=== PATIENT | male | born 1940 | race Asian ===

== ENCOUNTER 2017-01-04 06:13 | Day surgery (SDC) | payer MEDICARE, OTHER ==
[~2017-01-04] VITALS: Ht 157.5 cm; Wt 64.1 kg
[2017-01-04] MEDS ORDERED: MECL-77 PO (08:17)
[2017-01-04] MEDS ORDERED: SIMV5TAB50 PO (08:17)
[2017-01-04] MEDS ORDERED: OMEP5POW MC (08:17)
[2017-01-04] MEDS ORDERED: LOSA50TA6 PO (08:17)
[2017-01-04] MEDS ORDERED: ASPI81TA3 PO (08:17)
[2017-01-04] MEDS ORDERED: METO-448 PO (08:17)
[2017-01-04] MEDS ORDERED: NORT10CA2 PO (08:17)
[2017-01-04 08:20] VITALS: Ht 157.5 cm; Wt 64.1 kg
[2017-01-04] MEDS ORDERED: PROPOFOL 40 ML ONE (08:50)
[2017-01-04] MEDS ORDERED: LIDOCAINE 2% (SDV) 5 ML INJ ONE (08:50)
[2017-01-04 08:52] VITALS: BP 140/65; PULSE 64; RESP 12
[2017-01-04] MEDS ORDERED: EPHEDrine SULFATE 50 MG/5 ML SYG ONE (09:16)
[2017-01-04 09:59] VITALS: BP 124/61; PULSE 96; RESP 16
--- NOTE | 2017-01-04 11:38 | GILP ---
DATE OF PROCEDURE: NAME OF PROCEDURES: Colonoscopy and polypectomy. SURGEON: Sandie Uribe MD PREOPERATIVE DIAGNOSES: 1. Change in bowel habit. 2. History of colon polyps. POSTOPERATIVE DIAGNOSES 1. Colonoscopy all the way to the cecum. 2. Sigmoid colon polyp was removed using the snare and electrocautery. 3. Internal hemorrhoids. INDICATION FOR THE PROCEDURE: Mr. Elliott Agustin is a 76-year-old male patient who noticed a change in the bowel habit. He had history of colon polyps. His last colonoscopy was more than 6 years ago , so the patient was scheduled for colonoscopy for further evaluation. The procedure and possible complications were well explained to the patient. He understood and cons ented to the procedure. DESCRIPTION OF PROCEDURE: Under the influence of anesthesia, the colonoscope was carefully introduc ed in the rectum and under direct vision, it was advanced all the way to the cecum. FINDINGS: The patient had a sigmoid colon polyp and it was removed using the snare and electrocaute ry. The patient was noted to have internal hemorrhoids. He tolerated the procedure very well and there was no complication from the procedure. At the end o f the procedure, he was awake with stable vital signs and he was discharged home to the care of his family. IMPRESSION: 1. Colonoscopy all the way to the cecum. 2. Sigmoid colon polyp was removed using the snare and electrocautery. 3. Internal hemorrhoids. PLAN: 1. Await histopathology report. 2. Next screening colonoscopy in 5 years. Dictated By: SANDIE KING/OSMANI Conf#: [id number] DID#: [id number]
== END 2017-01-04 12:01 | disposition home or self-care (01) ==
LOC: GIL 06:13
PROVIDERS: ATTEND Internal Medicine Gastroenterology
DX: R19.4 Change in bowel habit (principal); D12.5 Benign neoplasm of sigmoid colon; K64.8 Other hemorrhoids; I10 Essential (primary) hypertension; E78.5 Hyperlipidemia, unspecified
CPT/HCPCS: 88305